=== PATIENT | male | born 1975 | race Caucasian/White ===

== ENCOUNTER 2017-12-16 19:57 | Emergency (ER) | payer OTHER, SELFPAY ==
[2017-12-16 20:02] VITALS: BP 158/113; PULSE 86; RESP 16; TEMP 36.4; O2SAT 100; BMI 26.6
--- NOTE | 2017-12-16 20:10 | DI.RAD.S_ITS ---
PROCEDURE: XR TOE LT MIN 2V INDICATIONS: 1st digit trauma TECHNIQUE: 3 views of the first toe(s) acquired. COMPARISON: None. FINDINGS: Bones: There is a comminuted fracture within the distal phalanx of the first digit. There is a single lucency that appears to extend to the articular surface. Predominant portions of the fracture are noted within the mid and distal aspect. Soft tissues: No suspicious soft tissue densities. IMPRESSION: Comminuted distal first phalanx fracture with borderline intra-articular extension. Dictated by: Lyn Rivera M.D. on 12/16/2017 at 21:27 Approved by: Lyn Rivera M.D. on 12/16/2017 at 21:29
--- NOTE | 2017-12-16 20:34 | ED_ITS ---
HPI - Extremity Injury (Lower) <MELLY Murphy - Last Filed: 12/16/17 22:47> General Chief Complaint: Extremity Injury, Lower Stated Complaint: LT 1ST TOE INJURY Time Seen by Provider: 12/16/17 20:33 History of Present Illness HPI Narrative: * Healthy 42-year-old male here for complaint of pain into his left great toe. He states that earlier today he accidentally dropped a heavy piece of iron on to the toe approximately an hour or 2 prior to arrival. Increased pain with ambulation he reports that there is some lacerations to his great toe. He denies any other injuries. He reports that his last tetanus was approximately 6-7 years ago. Related Data Previous Rx's Medication Instructions Recorded cephalexin [Keflex] 500 mg PO QID #24 cap 12/16/17 hydrocodone-acetaminophen [[place]] 1 tab PO Q6H PRN #15 tab 12/16/17 Allergies Allergy/AdvReac Type Severity Reaction Status Date / Time levofloxacin [LEVOFLOXACIN] Allergy Severe Unconscious Unverified 12/16/17 21:39 Review of Systems <MELLY Murphy - Last Filed: 12/16/17 22:47> Constitutional Denies chills, Denies fever(s), Denies lethargy and Denies weakness Eyes Denies change in vision, Denies eye discharge, Denies irritation and Denies loss of vision ENT Ears, Nose, Mouth, and Throat: Denies change in voice, Denies neck pain and Denies sore throat Cardiovascular Denies chest pain, Denies irregular heart rhythm, Denies lightheadedness, Denies palpitations, Denies dyspnea, Denies dyspnea on exertion and Denies orthopnea Respiratory Denies cough, Denies dyspnea, Denies dyspnea on exertion and Denies wheezing Genitourinary Denies hematuria, Denies flank pain, Denies urinary incontinence and Denies urinary urgency Musculoskeletal Denies neck pain Comments: Swelling and pain into left great toe after dropping a heavy object on it. Integumentary/Breasts Denies pruritus, Denies erythema, Denies rash and Denies wounds Neurologic Denies loss of vision and Denies weakness Endocrine Denies palpitations Allergic/Immunologic Denies wheezing Exam <MLELY Murphy - Last Filed: 12/16/17 22:47> Initial Vital Signs Initial Vital Signs: Vital Signs Temperature 97.5 F L 12/16/17 20:02 Pulse Rate 86 12/16/17 20:02 Respiratory Rate 16 12/16/17 20:02 Blood Pressure 158/113 H 12/16/17 20:02 Pulse Oximetry 100 12/16/17 20:02 Const General: cooperative and well developed Nutritional Appearance: well nourished Orientation: alert, awake, oriented x3 and not confused [facility] Mouth: oral mucosae normal and moist mucous membranes Eyes Conjunctivae: conjunctivae normal Sclera: sclerae normal Pupils: PERRL EOM: EOM intact bilaterally Neck Neck: normal visual inspection and trachea midline Chest Chest: normal inspection of the chest Resp Effort & Inspection: normal respiratory effort, able to speak in complete sentences, no respiratory distress and no use of accessory muscles Auscultation: clear to auscultation bilaterally, no rales, no rhonchi and no wheezes Cardio Rate: regular rate Rhythm: regular rhythm Heart Sounds: no click, no gallops, no murmurs and no rubs Pulses: normal peripheral pulses Skin General: no rashes or lesions noted, No jaundice and No petechiae Extrem Other: Left great toe with swelling. 1.5 cm laceration to the distal tip of the right great toe. Superficial laceration proximal to the nail fold distal sensation is intact. Distal to cap refill less than 2 sec. Full range of motion. <Tu Hernandez MD - Last Filed: 12/17/17 02:13> Initial Vital Signs Initial Vital Signs: Vital Signs Temperature 97.5 F L 12/16/17 20:02 Pulse Rate 86 12/16/17 20:02 Respiratory Rate 16 12/16/17 20:02 Blood Pressure 158/113 H 12/16/17 20:02 Pulse Oximetry 100 12/16/17 20:02 Procedures <MELLY Murphy - Last Filed: 12/16/17 22:47> Laceration Repair Laceration 1: Site: other (Distal great toe) Side (If applicable): left Size (cm): 1.5 Description: linear Depth: simple, single layer Local Anesthetic: lidocaine 1% Amount of anesthesia used (mL): 1 Pre-repair: wound explored and irrigated extensively Skin layer closed with: nylon Size (cm): 5-0 Number of sutures: 3 Technique: simple, interrupted Course <MELLY Murphy - Last Filed: 12/16/17 22:47> Orders Ordered: ED Orders 12/16/17 20:10 XR toe LT min 2V Stat Discontinued Medications Hydrocodone Bitart/Acetaminophen ([place] 5/325) 2 tab PO NOW ONE Stop: 12/16/17 21:25 Last Admin: 12/16/17 21:33 Dose: 2 tab Cefazolin Sodium (Keflex) 1 bottle MISC SEEINSTR ONE Stop: 12/16/17 22:30 Last Admin: 12/16/17 22:51 Dose: 1 bottle Vital Signs - 8 hr 12/16/17 20:02 12/16/17 21:24 12/16/17 22:27 Temperature 97.5 F L 98.9 F 97.9 F Pulse Rate 86 90 88 Respiratory Rate 16 20 18 Blood Pressure 158/113 H Blood Pressure [Left Arm] 148/94 H 140/91 H Pulse Oximetry 100 99 97 <Tu Hernandez MD - Last Filed: 12/17/17 02:13> Orders Ordered: ED Orders 12/16/17 20:10 XR toe LT min 2V Stat Discontinued Medications Hydrocodone Bitart/Acetaminophen ([place] 5/325) 2 tab PO NOW ONE Stop: 12/16/17 21:25 Last Admin: 12/16/17 21:33 Dose: 2 tab Cefazolin Sodium (Keflex) 1 bottle MISC SEEINSTR ONE Stop: 12/16/17 22:30 Last Admin: 12/16/17 22:51 Dose: 1 bottle Vital Signs - 8 hr 12/16/17 20:02 12/16/17 21:24 12/16/17 22:27 Temperature 97.5 F L 98.9 F 97.9 F Pulse Rate 86 90 88 Respiratory Rate 16 20 18 Blood Pressure 158/113 H Blood Pressure [Left Arm] 148/94 H 140/91 H Pulse Oximetry 100 99 97 MDM - Extremity Injury (Lower) <MELLY Murphy - Last Filed: 12/16/17 22:47> MDM Narrative Medical decision making narrative: X-ray of the left great toe was obtained and shows a fracture to the distal phalanx. Will treat as open fracture and treat with Keflex. [id number] ibuprofen as needed for discomfort. [place] is prescribed for breakthrough pain. Ice and elevation help with swelling. Laceration to the distal great toe was closed with 3 sutures. Sutures to be removed in approximately 10 days. Patient to follow up with Orthopedics. Patient is instructed to call Orthopedics office tomorrow to schedule follow-up appointment in the next couple of days. [place] is prescribed for breakthrough pain. For any worsening symptoms return to the emergency room. Discharge Plan Departure Patient Disposition: Home, Self-Care Clinical Impression: Fracture of toe Discharge Date/Time: 12/16/17 22:57 Interventions: ED Discharge Assessment Last Done: 12/16/17 22:55 Instructions: DI for Toe Fracture Activity Restrictions/Additional Instructions: X-ray shows fracture of the left great toe. You are placed on antibiotics to prevent infection take as directed. Keep initial dressing on clean and dry for the next 24 hr. After that may change dressing redressed with bacitracin and a dressing. Call Orthopedics office tomorrow to schedule follow-up appointment here in the next couple of days. Use [id number] ibuprofen as needed for discomfort. May use [place] as prescribed for breakthrough pain not covered by the ibuprofen. Ice and elevation help with swelling. For any worsening symptoms return to the emergency room. Laceration to the distal great toe was closed with 3 sutures the sutures will need to be removed in approximately 10 days. Prescriptions: New hydrocodone-acetaminophen [[place]] 5-325 mg tablet 1 tab PO Q6H PRN (Reason: pain) Qty: 15 RF: 0 cephalexin [Keflex] 500 mg capsule 500 mg PO QID Qty: 24 RF: 0 Referrals: Lala Kline MD [Physician] - Lincoln Quick ARNP [Non-Staff] - <Tu Hernandez MD - Last Filed: 12/17/17 02:13> Cosign ED Attending Joeature Attestation: - I was immediately available in the department for consultation. Documentation has been reviewed. I agree with assessment and plan.
[2017-12-16 21:24] VITALS: BP 148/94; PULSE 90; RESP 20; TEMP 37.2; O2SAT 99
[2017-12-16] MEDS: HYDROCODONE/ACET 5/325 TABLET 2 TAB PO (21:33)
[2017-12-16] MEDS: DIPHTH,PERTUSS(ACELL),TET VAC 0.5 ML SYRINGE IM (21:34)
[2017-12-16 22:27] VITALS: BP 140/91; PULSE 88; RESP 18; TEMP 36.6; O2SAT 97
[2017-12-16] MEDS: cephALEXin 250 MG PREPACK 1 BOTTLE MISC (22:51)
== END 2017-12-16 22:57 | disposition home or self-care (01) ==
PROVIDERS: Emergency Provider Nurse Practitioner Family
DX: S92.402A Displaced unspecified fracture of left great toe, initial encounter for closed fracture (principal); W20.8XXA Other cause of strike by thrown, projected or falling object, initial encounter
CPT/HCPCS: 73660; 90715; 96372; 99282; 99283

== ENCOUNTER → 2020-09-18 09:28 | Outpatient (CLI) | payer OTHER, SELFPAY ==
[2020-09-18 11:39] LABS: COVID19 -Nasal RAPID Negative (Negative)
== END ==
PROVIDERS: PCP Physician Assistant Medical; Visit Provider Physician Assistant
DX: Z20.822 Contact with and (suspected) exposure to COVID-19 (principal)
CPT/HCPCS: 87635

== ENCOUNTER 2020-09-20 08:43 | Day surgery (SDC) | payer OTHER, SELFPAY ==
[2020-09-20] VITALS (9 sets, daily range): BP systolic 114–145; BP diastolic 79–99; PULSE 65–87; RESP 12–24; TEMP 36.6–36.8; O2SAT 94–100; BMI 25.8
--- NOTE | 2020-09-20 | PATH_ITS ---
[facility] Accession Number: [id number] . 01 Material submitted: . colon - ASCENDING COLON POLYP . 01 Clinical history: . COLONOSCOPY . 02 Diagnosis: Ascending Colon Polyp, Biopsy: Tubular adenoma. MRV 09/22/2020 1522 Local . 02 Electronically signed: . Rory Pittman MD, PhD, Pathologist NPI- [id number] . 01 Gross description: . ASCENDING COLON POLYP: Received in formalin are 2 fragment(s) of [place], soft tissue measuring 0.1 x 0.1 x 0.1 cm to 0.2 x 0.2 x 0.2 cm submitted entirely in 1 cassette(s) /INDIRA 09/21/2020 2305 Local . 02 Pathologist provided ICD-10: D12.2 . 02 CPT . 196198 Performed at: [facility] [address] [id number] MD Kervin Burkett MD Phone: [phone] [facility]formed at: [facility] [address] [place], [place] [id number] MD Kathy Cruz MD Phone: [phone]
[2020-09-20] MEDS: SODIUM CHLORIDE 0.9% 1,000 ML 100 ML IV (09:16)
--- NOTE | 2020-09-20 09:27 | PM.HP.1 ---
History of Present Illness History of Present Illness Date Patient Seen: 09/20/20 Chief complaint: COLONOSCOPY Narrative: Family history of colon polyps Patient History Family & Social History Social History: household members spouse Tobacco & Substance use: Smoking Status Current every day smoker alcohol intake current alcohol intake frequency 3 or more drinks per day Substance Use Type marijuana Meds Home Medications and Allergies Home Medications Medication Instructions Recorded Confirmed Type omeprazole 20 mg PO DAILY 09/20/20 09/20/20 History Allergies Allergy/AdvReac Type Severity Reaction Status Date / Time levofloxacin [LEVOFLOXACIN] Allergy Severe Unresponsiv Unverified 09/20/20 09:06 e Exam Vital Signs (past 8 hours): - 09/20/20 09:09 Temperature 98.3 F Pulse Rate 87 Respiratory Rate 16 Blood Pressure 145/99 H Pulse Oximetry 98 Oxygen Delivery Method Room Air Narrative Exam Narrative: Oropharynx free of lesions Chest clear to auscultation percussion Cardiac exam reveals no S3 or murmur Assessment & Plan Assessment & Plan narrative: Family history of colon polyps. First colonoscopy. Risks, benefits, alternatives have been explained.
--- NOTE | 2020-09-20 09:28 | PM.OP.ENDO ---
Operative Date/Time/Diagnoses Date of procedure: 09/20/20 Pre-op diagnosis: See indication and findings Procedure & Clinicians Study performed: Colonoscopy Same procedure as scheduled: Yes Indications: Family history of colon polyps Procedure Notes Procedure in detail: After informed consent was obtained the patient was placed in left lateral decubitus position. The video colonoscope was introduced the rectum and slowly advanced to cecum. Preparation was good. On slow withdrawal mucosa was carefully examined. The scope was removed. The patient tolerated procedure well. Blood loss none Complications none Sedation Total sedation time 20 minutes Fentanyl 200 mg Versed 10 mg IV titration Findings 1. 5 mm polyp in the ascending colon Jumbo biopsy removed in a piecemeal fashion 2. Moderate sigmoid and left-sided diverticulosis 3. Otherwise negative colonoscopy to cecum Pending outcome of biopsies Chintan will need follow-up colonoscopy in 5-10 years.
[2020-09-20] MEDS: fentaNYL 250 MCG/5 ML INJ IV (10:11)
[2020-09-20] MEDS: MIDAZOLAM 5 MG/5 ML VIAL IV (10:13)
== END 2020-09-20 11:16 | disposition home or self-care (01) ==
PROVIDERS: PCP Physician Assistant Medical; Referring Provider Internal Medicine Gastroenterology; Visit Provider Internal Medicine Gastroenterology
PROC: 0DJD8ZZ Inspection of Lower Intestinal Tract, Via Natural or Artificial Opening Endoscopic (ICD-10-PCS; CPT 45378; principal; 2020-09-20 11:00)
DX: Z12.11 Encounter for screening for malignant neoplasm of colon (principal); F17.210 Nicotine dependence, cigarettes, uncomplicated; K57.30 Diverticulosis of large intestine without perforation or abscess without bleeding; D12.2 Benign neoplasm of ascending colon
CPT/HCPCS: 45380; J2250; J3010